=== PATIENT | female | born 1990 | race Caucasian/White ===

== ENCOUNTER 2016-10-06 22:03 | Emergency (ER) | payer OTHER ==
[~2016-10-06] VITALS: Ht 165.1 cm; Wt 145.1 kg
[2016-10-06 23:00] VITALS: BP 146/68
--- NOTE | 2016-10-06 23:40 | NUR ---
Patient to [facility]
--- NOTE | 2016-10-06 23:40 | NUR ---
PATIENT PRESENTS TO ED WITH DIZZINESS, FEVER, NAUSEA, CHILLS FOR A WEEK, SHE TOOK IBUPROFEN AT 0800HOUR. SKIN IS PINK/WARM/DRY; AAOX4 WITH EVEN AND STEADY GAIT; LUNGS CLEAR BL; HR EVEN AND REGULAR; PT DENIES ANY CP, SOB, OR COUGH AT THIS TIME; PATIENT STATES PAIN OF 8/10 AT THIS TIME; VSS; PATIENT POSITIONED FOR COMFORT; HOB ELEVATED; BEDRAILS UP X2; BED DOWN. FRANCISCO JAVIER AIKEN MADE AWARE OF PT STATUS. Addendum: 10/06/16 at 2346 by MEDND PATIENT PRESENTS TO ED WITH DIZZINESS, FEVER, NAUSEA, CHILLS FOR A WEEK, SHE TOOK IBUPROFEN AT 0800HOUR. SKIN IS PINK/WARM/DRY; AAOX4 WITH EVEN AND STEADY GAIT; LUNGS CLEAR BL; HR EVEN AND REGULAR; PT DENIES ANY CP, SOB, AT THIS TIME; PATIENT STATES PAIN OF 8/10 AT THIS TIME; VSS; PATIENT POSITIONED FOR COMFORT; HOB ELEVATED; BEDRAILS UP X2; BED DOWN. FRANCISCO AJVIER AIKEN MADE AWARE OF PT STATUS.
--- NOTE | 2016-10-06 23:42 | NUR ---
Dr. Wojciech wiseuting patient.
--- NOTE | 2016-10-06 23:46 | NUR ---
Note undone in EDM - 10/06/16 at 2346 by DONNIE PATIENT PRESENTS TO ED WITH DIZZINESS, FEVER, NAUSEA, CHILLS FOR A WEEK, SHE TOOK IBUPROFEN AT 0800HOUR. SKIN IS PINK/WARM/DRY; AAOX4 WITH EVEN AND STEADY GAIT; LUNGS CLEAR BL; HR EVEN AND REGULAR; PT DENIES ANY CP, SOB, AT THIS TIME; PATIENT STATES PAIN OF 8/10 AT THIS TIME; VSS; PATIENT POSITIONED FOR COMFORT; HOB ELEVATED; BEDRAILS UP X2; BED DOWN. ER MD MADE AWARE OF PT STATUS.
[2016-10-06] MEDS ORDERED: MECLIZINE 25 MG TAB PO ONE (23:50)
--- NOTE | 2016-10-06 23:51 | NUR ---
Patient ambulated to bed 03.
--- NOTE | 2016-10-06 23:54 | NUR ---
BLOOD DRAWN BY [employer]GIST.
--- NOTE | 2016-10-07 01:10 | NUR ---
PT.VERBALIZED NON-RELIEF OF DIZZINESS,NAUSEA AND HEADACHE. MADE AWARE.
--- NOTE | 2016-10-07 02:12 | NUR ---
DISCHARGED STABLE AND IMPROVED. PRESCRIPTION,COPY OF LABS. AND AFTERCARE INSTRUCTIONS GIVEN. VERBALIZED UNDERSTANDING.
[2016-10-07 02:15] VITALS: BP 141/78
== END 2016-10-07 02:12 | disposition home or self-care (01) ==
LOC: MED 22:03
DX: R42 Dizziness and giddiness (principal); R50.9 Fever, unspecified; R11.0 Nausea
CPT/HCPCS: 36415; 80053; 81001; 81025; 85025; 99284; J8597

== ENCOUNTER 2017-08-09 07:51 | Emergency (ER) | payer OTHER ==
[~2017-08-09] VITALS: Ht 165.1 cm; Wt 171.5 kg
[2017-08-09 07:55] VITALS: BP 145/70
--- NOTE | 2017-08-09 07:59 | NUR ---
URINE CUP PROVIDED FOR PT; PT AA&O X 4, TO LOBBY AWAITING OPEN BED.
--- NOTE | 2017-08-09 08:00 | NUR ---
26F BIB C/O VAGINAL BLEEDING X THIS MORNING WITH "TINY CLOTTS"; PT STATES WAS BLEEDING ON 08/03/17, WENT TO [facility], BLEEDING LIGHTENED, BUT GOT DARKER TODAY. PT STATES 14 WEEKS . M0 A0.HX: ENDOMETRIOSIS, OVARIAN CYST . DENIES N/V/D; SKIN IS PINK/WARM/DRY; AAOX4 WITH EVEN AND STEADY GAIT; LUNGS CLEAR BL; PATIENT STATES PAIN OF 0/10 AT THIS TIME; PATIENT POSITIONED FOR COMFORT; HOB ELEVATED; BEDRAILS UP X2; BED DOWN. ER MADE AWARE OF PT STATUS.
[2017-08-09 08:59] LABS: BASOPHILS # (AUTO) 0.2 K/uL (0.00-0.22); BASOPHILS % (AUTO) 1.6 % (0.0-2.0); EOSINOPHILS # (AUTO) 0.1 K/uL (0-0.4); EOSINOPHILS % (AUTO) 0.8 % (0.0-4.0); HEMATOCRIT 36.2 % (36-48); HEMOGLOBIN 12.4 g/dL (12.0-16.0); LYMPHOCYTES # (AUTO) 2.2 K/uL (2.5-16.5); MEAN CORPUSCULAR HEMOGLOBIN 29 pg (27-31); MEAN CORPUSCULAR HGB CONC 34 g/dL (33-37); MEAN CORPUSCULAR VOLUME 85 fL (80-94); MONOCYTES # (AUTO) 0.6 K/uL (0.8-1.0); MONOCYTES % (AUTO) 4.7 % (1.7-9.3); NEUTROPHILS # (AUTO) 8.9 K/uL (1.8-7.7); NEUTROPHILS % (AUTO) 74.9 % (42.2-75.2); PLATELET COUNT (AUTO) 333 K/uL (140-450); RED BLOOD CELL COUNT(AUTO) 4.25 MIL/uL (4.20-5.40); RED CELL DISTRIBUTION WIDTH 13.7 % (11.6-13.7)
[2017-08-09 09:12] LABS: CARBON DIOXIDE 25.2 mmol/L (21-32); CREATININE 0.6 mg/dL (0.6-1.3); POTASSIUM 4.2 mmol/L (3.5-5.1)
[2017-08-09 09:21] LABS: APPEARANCE,URINE HAZY (CLEAR); BILIRUBIN,URINE NEGATIVE (NEGATIVE); BLOOD, URINE 3+ (NEGATIVE); COLOR,URINE YELLOW (YELLOW); LEUKOCYTE ESTERASE ,URINE 2+ (NEGATIVE); NITRITE, URINE NEGATIVE (NEGATIVE); UGLUCOSE NEGATIVE (NEGATIVE)
[2017-08-09 09:29] LABS: ALBUMIN 2.9 g/dL (3.4-5.0); TOTAL BILIRUBIN 0.2 mg/dL (0.0-1.0)
[2017-08-09 09:49] LABS: RBC,URINE 50-80 /HPF (0-5)
--- NOTE | 2017-08-09 10:27 | NUR ---
PELVIC EXAME DONE BY DR LANDIS. PT TOLERATED PROCEDURE WELL.
[2017-08-09 10:43] VITALS: BP 132/69
== END 2017-08-09 10:43 | disposition home or self-care (01) ==
LOC: MED 07:51
DX: O20.0 Threatened abortion (principal); Z3A.14 14 weeks gestation of pregnancy
CPT/HCPCS: 36415; 76801; 80053; 81001; 81025; 84702; 85025; 86900; 86901; 87086; 99285

== ENCOUNTER 2017-09-27 09:30 | Observation (INO) | payer OTHER ==
[~2017-09-27] VITALS: Ht 165.1 cm; Wt 169.2 kg
[2017-09-27 11:41] VITALS: BP 125/58
--- NOTE | 2017-09-28 10:19 | NUR ---
PATIENT HAS BEEN SCREENED AND CATEGORIZED LOW NUTRITION RISK. PATIENT WILL BE SEEN WITHIN 7 DAYS OF ADMISSION. 10/04/[address]
== END 2017-09-28 11:30 | disposition home or self-care (01) ==
LOC: MLD 09:30 → MFCC 18:19
PROVIDERS: ADMIT Obstetrics & Gynecology; ATTEND Obstetrics & Gynecology
DX: O42.912 Preterm premature rupture of membranes, unspecified as to length of time between rupture and onset of labor, second trimester (principal); Z3A.21 21 weeks gestation of pregnancy
CPT/HCPCS: 76805; 76815; 81000; G0378; Q0092

== ENCOUNTER 2017-10-20 07:53 | Observation (INO) | payer OTHER ==
[~2017-10-20] VITALS: Ht 165.1 cm; Wt 167.8 kg
[2017-10-20 08:28] VITALS: BP 114/61
[2017-10-20] MEDS ORDERED: cefTRIAXone 1,000 MG in LIDOCAINE MPF 1% - **ER/OR** 2.1 ML IM SCH (08:40)
[2017-10-20] MEDS ORDERED: TERBUTALINE 1 MG/ML VIAL SUBQ SCH (08:40)
[2017-10-20] MEDS ORDERED: TERBUTALINE 1 MG/ML VIAL SUBQ ONE (08:44)
== END 2017-10-20 09:38 | disposition home or self-care (01) ==
LOC: MLD 07:53
PROVIDERS: ADMIT Obstetrics & Gynecology; ATTEND Obstetrics & Gynecology
DX: O62.9 Abnormality of forces of labor, unspecified (principal); Z3A.27 27 weeks gestation of pregnancy
CPT/HCPCS: 81000; 96372; G0378; J0696; J2001; J3105

== ENCOUNTER 2017-11-15 12:19 | Emergency (ER) | payer OTHER ==
[~2017-11-15] VITALS: Ht 165.1 cm; Wt 161.9 kg
[2017-11-15 12:22] VITALS: BP 129/76
[2017-11-15 13:11] VITALS: BP 128/74
== END 2017-11-15 13:10 | disposition home or self-care (01) ==
LOC: MED 12:19
DX: F41.9 Anxiety disorder, unspecified (principal); G47.00 Insomnia, unspecified
CPT/HCPCS: 93005; 99284

== ENCOUNTER 2017-11-26 22:54 | Emergency (ER) | payer OTHER ==
[~2017-11-26] VITALS: Ht 165.1 cm; Wt 161.5 kg
[2017-11-26 22:58] VITALS: BP 135/71
--- NOTE | 2017-11-26 23:02 | NUR ---
PT SENT TO [facility], [facility].
--- NOTE | 2017-11-26 23:46 | NUR ---
PT TAKEN TO BED 10
--- NOTE | 2017-11-26 23:47 | NUR ---
PATIENT PRESENTS TO ED WITH HEAD TINGLING X4 DAYS AND NASAL CONGESTION X1 DAY . PT STATES N/V; SKIN IS PINK/WARM/DRY; AAOX4 WITH EVEN AND STEADY GAIT; LUNGS CLEAR BL; HR EVEN AND REGULAR; PT DENIES ANY FEVER, CP, SOB, OR COUGH AT THIS TIME; PATIENT STATES PAIN OF 5/10 AT THIS TIME; VSS; PATIENT POSITIONED FOR COMFORT; HOB ELEVATED; BEDRAILS UP X1; BED DOWN. ER MD MADE AWARE OF PT STATUS.
--- NOTE | 2017-11-27 00:04 | NUR ---
Dr. Ulloa evaluating patient at bedside.
[2017-11-27 01:20] VITALS: BP 135/71
--- NOTE | 2017-11-27 01:20 | NUR ---
Patient discharged with v/s stable. Written and verbal after care instructions given and explained. Patient verbalized understanding. Ambulatory with steady gait. All questions addressed prior to discharge. Advised to follow up with PMD.
== END 2017-11-27 01:20 | disposition home or self-care (01) ==
LOC: MED 22:54
DX: F41.9 Anxiety disorder, unspecified (principal)
CPT/HCPCS: 99284

== ENCOUNTER 2018-02-25 11:49 | Emergency (ER) | payer OTHER ==
[~2018-02-25] VITALS: Ht 165.1 cm; Wt 16.5 kg
[2018-02-25 12:06] VITALS: BP 129/75
--- NOTE | 2018-02-25 12:24 | NUR ---
C/O LOWER BACK PAIN SINCE YESTERDAY AFTER TRYING TO PUT ON HER SHOES; DENIES ANY OTHER INJURY HX; DENIES RX; DENIES
[2018-02-25] MEDS ORDERED: traMADol 50 MG TAB PO ONE (12:35)
--- NOTE | 2018-02-25 12:40 | NUR ---
MEDICATED ORDERED, WILL MONITOR FOR EFFECT.
[2018-02-25 12:57] VITALS: BP 134/81
== END 2018-02-25 12:58 | disposition home or self-care (01) ==
LOC: MED 11:49
DX: S39.012A Strain of muscle, fascia and tendon of lower back, initial encounter (principal); X50.1XXA Overexertion from prolonged static or awkward postures, initial encounter; Y93.89 Activity, other specified; Y92.89 Other specified places as the place of occurrence of the external cause; Y99.8 Other external cause status
CPT/HCPCS: 99283

== ENCOUNTER 2020-12-20 11:30 | Emergency (ER) | payer OTHER ==
[~2020-12-20] VITALS: Ht 165.1 cm; Wt 163.3 kg
--- NOTE | 2020-12-20 11:38 | NUR ---
PT AMBULATED TO BED 8
[2020-12-20 11:55] VITALS: BP 137/78
--- NOTE | 2020-12-20 12:00 | NUR ---
30 YEAR OLD FEMALE COMPLAINS OF VAGINAL SPOTTING/BLEEDING X TODAY. PT STATES THAT SHE IS 8 WEEKS , DID NOT HAVE TO CHANGE PADS TODAY FOR VAGINAL BLEEDING. PT DENIES NAUSEA, VOMITTING, DIARRHEA. PT AOX4, BREATHING EVEN AND UNLABORED, SKIN WARM AND DRY. BED IN LOWEST POSITION, LOCKED, BED RAIL UPX1. PMH - ANXIETY, ANEMIA ALLERGIES - NKA
--- NOTE | 2020-12-20 12:15 | NUR ---
BLOOD COLLECTED AND WALKED TO LAB.
[2020-12-20 12:47] LABS: ANION GAP 12.5 (8-16); CARBON DIOXIDE 26.4 mmol/L (21-32); CREATININE 0.7 mg/dL (0.6-1.3); POTASSIUM 3.9 mmol/L (3.5-5.1)
--- NOTE | 2020-12-20 12:49 | NUR ---
ULTRASOUND AT BEDSIDE
[2020-12-20 12:56] LABS: BASOPHILS # (AUTO) 0.1 K/uL (0.00-0.22); BASOPHILS % (AUTO) 0.5 % (0.0-2.0); EOSINOPHILS # (AUTO) 0.1 K/uL (0-0.4); EOSINOPHILS % (AUTO) 0.5 % (0.0-4.0); HEMATOCRIT 40.4 % (36-48); HEMOGLOBIN 13.4 g/dL (12.0-16.0); LYMPHOCYTES # (AUTO) 2.7 K/uL (2.5-16.5); LYMPHOCYTES % (AUTO) 21.9 % (20.5-51.1); MEAN CORPUSCULAR HEMOGLOBIN 30 pg (27-31); MEAN CORPUSCULAR HGB CONC 33 g/dL (33-37); MONOCYTES # (AUTO) 0.7 K/uL (0.8-1.0); MONOCYTES % (AUTO) 5.9 % (1.7-9.3); NEUTROPHILS # (AUTO) 8.8 K/uL (1.8-7.7); NEUTROPHILS % (AUTO) 71.2 % (42.2-75.2); PLATELET COUNT (AUTO) 380 K/uL (140-450); RED BLOOD CELL COUNT(AUTO) 4.54 MIL/uL (4.20-5.40); WHITE BLOOD COUNT (AUTO) 12.4 K/uL (4.8-10.8)
--- NOTE | 2020-12-20 13:00 | NUR ---
PT ALERT AND AWAKE, BREATHING EVEN AND UNLABORED. NO DISTRESS NOTED. ALL NEEDS MET AT THIS TIME. WILL CONTINUE TO MONITOR.
--- NOTE | 2020-12-20 14:00 | NUR ---
PT ALERT AND AWAKE, BREATHING EVEN AND UNLABORED. NO DISTRESS NOTED. ALL NEEDS MET AT THIS TIME. WILL CONTINUE TO MONITOR.
[2020-12-20] MEDS ORDERED: CEPH-588 PO (14:08)
[2020-12-20 14:18] VITALS: BP 137/78
--- NOTE | 2020-12-20 14:20 | NUR ---
Patient discharged with v/s stable. Written and verbal after care instructions given URINARY TRACT INFECTION AND INCOMPLETE and explained. Patient alert, oriented and verbalized understanding of instructions. Ambulatory with steady gait. All questions addressed prior to discharge. ID band removed. Patient advised to follow up with PMD. Rx of KEFLEX 500MG PO QID FOR 7DAYS given. Patient educated on indication of medication including possible reaction and side effects. Opportunity to ask questions provided and answered.
== END 2020-12-20 14:20 | disposition home or self-care (01) ==
LOC: MED 11:30
DX: O23.41 Unspecified infection of urinary tract in pregnancy, first trimester (principal); O20.8 Other hemorrhage in early pregnancy; Z3A.08 8 weeks gestation of pregnancy
CPT/HCPCS: 36415; 76801; 76817; 80048; 81002; 81025; 84702; 85025; 86900; 86901; 87086; 99285

== ENCOUNTER 2022-06-19 13:56 | Emergency (ER) | payer SELFPAY ==
[~2022-06-19] VITALS: Ht 165.1 cm; Wt 190.5 kg
[~2022-06-19 13:56] MED LIST: CEPH-588 PO
[2022-06-19 14:14] VITALS: BP 162/78
[2022-06-19] MEDS ORDERED: CIPR7.5S OT (14:49)
[2022-06-19] MEDS ORDERED: IBUP-2213 PO (14:49)
--- NOTE | 2022-06-19 15:11 | NUR ---
Patient discharged with v/s stable. Written and verbal after care instructions given and explained. Patient alert, oriented and verbalized understanding of instructions. Ambulatory with steady gait. All questions addressed prior to discharge. ID band removed. Patient advised to follow up with PMD. Rx of CIPRO EAR DROPS given. Patient educated on indication of medication including possible reaction and side effects. Opportunity to ask questions provided and answered.
== END 2022-06-19 15:11 | disposition home or self-care (01) ==
LOC: MED 13:56
DX: H60.92 Unspecified otitis externa, left ear (principal)
CPT/HCPCS: 99283

== ENCOUNTER 2022-10-03 11:28 | Emergency (ER) | payer MEDICAID ==
[~2022-10-03] VITALS: Ht 172.7 cm; Wt 108.9 kg
[~2022-10-03 11:28] MED LIST changes: +CIPR7.5S OT; +IBUP-2213 PO
[2022-10-03 11:39] VITALS: BP 184/99
--- NOTE | 2022-10-03 12:21 | NUR ---
PT AMBULATED TO ER BED 8
[2022-10-03 12:36] LABS: BASOPHILS # (AUTO) 0.1 K/uL (0.00-0.22); BASOPHILS % (AUTO) 0.8 % (0.0-2.0); EOSINOPHILS # (AUTO) 0.1 K/uL (0-0.4); EOSINOPHILS % (AUTO) 1.4 % (0.0-4.0); HEMATOCRIT 36.5 % (36-48); HEMOGLOBIN 11.9 g/dL (12.0-16.0); LYMPHOCYTES # (AUTO) 2.8 K/uL (2.5-16.5); LYMPHOCYTES % (AUTO) 28.4 % (20.5-51.1); MEAN CORPUSCULAR HEMOGLOBIN 26 pg (27-31); MEAN CORPUSCULAR HGB CONC 33 g/dL (33-37); MONOCYTES # (AUTO) 0.7 K/uL (0.8-1.0); MONOCYTES % (AUTO) 6.9 % (1.7-9.3); NEUTROPHILS # (AUTO) 6.1 K/uL (1.8-7.7); NEUTROPHILS % (AUTO) 62.5 % (42.2-75.2); PLATELET COUNT (AUTO) 452 K/uL (140-450); RED BLOOD CELL COUNT(AUTO) 4.51 MIL/uL (4.20-5.40); WHITE BLOOD COUNT (AUTO) 9.8 K/uL (4.8-10.8)
[2022-10-03 12:52] LABS: ALBUMIN 3.4 g/dL (3.4-5.0); ANION GAP 12.3 (8-16); CARBON DIOXIDE 26.9 mmol/L (21-32); CREATININE 0.8 mg/dL (0.6-1.3); POTASSIUM 4.2 mmol/L (3.5-5.1); TOTAL BILIRUBIN 0.2 mg/dL (0.0-1.0)
[2022-10-03] MEDS ORDERED: KETOROLAC 30 MG/ML VIAL IM ONE (13:10)
[2022-10-03 13:21] LABS: APPEARANCE,URINE CLEAR (CLEAR); BILIRUBIN,URINE NEGATIVE (NEGATIVE); BLOOD, URINE 3+ (NEGATIVE); COLOR,URINE YELLOW (YELLOW); LEUKOCYTE ESTERASE ,URINE 1+ (NEGATIVE); NITRITE, URINE NEGATIVE (NEGATIVE); UGLUCOSE NEGATIVE (NEGATIVE)
[2022-10-03 13:32] LABS: RBC,URINE 80-100 /HPF (0-5)
[2022-10-03] MEDS ORDERED: cephALEXin 500 MG CAP PO ONE (13:50)
[2022-10-03] MEDS ORDERED: CEPH-588 PO (14:05)
[2022-10-03] MEDS ORDERED: IBUP-2213 PO (14:05)
[2022-10-03] MEDS ORDERED: cefTRIAXone 1,000 MG in LIDOCAINE MPF 1% 2.1 ML IM ONE (14:15)
[2022-10-03] MEDS ORDERED: cefTRIAXone 1,000 MG VIAL ONE (14:29)
[2022-10-03 14:38] VITALS: BP 140/88
--- NOTE | 2022-10-03 14:38 | NUR ---
Patient discharged with v/s stable. Written and verbal after care instructions FOR UTI given and explained. Patient alert, oriented and verbalized understanding of instructions. Ambulatory with steady gait. All questions addressed prior to discharge. ID band removed. Patient advised to follow up with PMD. Rx of KEFLEX given. Opportunity to ask questions provided and answered.
== END 2022-10-03 14:38 | disposition home or self-care (01) ==
LOC: MED 11:28
DX: N39.0 Urinary tract infection, site not specified (principal); Z79.899 Other long term (current) drug therapy
CPT/HCPCS: 36415; 80053; 81001; 81025; 83605; 83690; 85025; 87040; 87086; 96372; 99284; J0696; J1885